=== PATIENT | female | born 1960 | race Caucasian/White ===

== ENCOUNTER 2018-02-20 11:07 | Inpatient (IN) | payer BC, OTHER ==
[~2018-02-20 11:07] MED LIST: CEFAZOLIN 2 GM/50 ML (PMX) 50 ML IVPB; LACTATED RINGER'S 1,000 ML IV*; metroNIDAZOLE 500 MG/NS (PMX) 100 ML IVPB
[2018-02-20] MEDS ORDERED: metroNIDAZOLE 500 MG/NS (PMX) 100 ML IVPB (13:10)
[2018-02-20] MEDS ORDERED: PROPOFOL 20 ML (13:10)
[2018-02-20] MEDS ORDERED: CEFAZOLIN 1 GM INJ (13:10)
[2018-02-20] MEDS ORDERED: LIDOCAINE 2% (SDV) 5 ML INJ (13:10)
[2018-02-20] MEDS ORDERED: MIDAZOLAM 1 MG/ML 2 ML INJ (13:11)
[2018-02-20] MEDS ORDERED: FENTAnyl 50 MCG/ML VIAL (13:11)
[2018-02-20] MEDS ORDERED: ONDANSETRON 4 MG INJ (13:32)
[2018-02-20] MEDS ORDERED: DEXAMETHASONE 4 MG/ML 1 ML INJ (13:32)
[2018-02-20] MEDS ORDERED: FAMOTIDINE 20 MG INJ (13:33)
[2018-02-20] MEDS ORDERED: METOCLOPRAMIDE 10 MG INJ (14:00)
[2018-02-20] MEDS ORDERED: EPHEDrine SULFATE 50 MG/5 ML SYG (14:01)
[2018-02-20] MEDS: BUPIVACAINE 0.25%/EPI (MDV) 50 ML VIAL INJ (14:02)
[2018-02-20] MEDS: LIDOCAINE 1% (MDV) 20 ML INJ (14:02)
[2018-02-20] MEDS ORDERED: HYDROmorphONE 2 MG/ML SYG (14:04)
[2018-02-20] MEDS ORDERED: MEPERIDINE 25 MG INJ IV (15:00)
[2018-02-20] MEDS ORDERED: hydrALAzine 20 MG INJ IV (15:00)
[2018-02-20] MEDS ORDERED: FENTAnyl 50 MCG/ML VIAL IV (15:00)
[2018-02-20] MEDS ORDERED: ALBUTEROL 0.083% (NEB) 2.5 MG/3 ML AMP HHN (15:00)
[2018-02-20] MEDS ORDERED: LABETALOL HCL 20MG INJ IV (15:00)
[2018-02-20] MEDS ORDERED: HYDROmorphONE 1 MG/5 ML IV SYRINGE IV (15:00)
[2018-02-20] MEDS ORDERED: ONDANSETRON 4 MG INJ IV ×2 (15:00→16:00)
[2018-02-20] MEDS ORDERED: CEPASTAT LOZENGE MT (16:00)
[2018-02-20] MEDS ORDERED: NITROGLYCERIN (SL) 0.4 MG TAB SL (16:00)
[2018-02-20] MEDS ORDERED: HYDROmorphONE 0.5 MG/0.5 ML SYG IV (16:00)
[2018-02-20] MEDS: ACETAMINOPHEN 1000MG/100ML IV 100 ML IVPB (16:16)
[2018-02-20 16:30] LABS: ADD MAN DIFF? NO
[2018-02-20] MEDS ORDERED: GLUCOSE GEL 15 GRAM TUBE BUCCAL (16:30)
[2018-02-20] MEDS ORDERED: DEXTROSE 50% 50 ML SYRINGE IV ×2 (16:30)
[2018-02-20] MEDS ORDERED: GLUCOSE GEL 15 GRAM TUBE PO ×2 (16:30)
[2018-02-20] MEDS ORDERED: GLUCAGON 1 MG INJ IM (16:30)
[2018-02-20 16:31] LABS: BASOPHILS % 0.4 % (0.0-2.0); EOSINOPHILS % 0.3 % (0.0-7.0); HEMATOCRIT 37.6 % (37.0-47.0); HEMOGLOBIN 12.3 g/dl (12.0-16.0); LYMPHOCYTES # 1.1 10^3/ul (0.8-2.9); LYMPHOCYTES % 15.2 % (15.0-51.0); MEAN CORPUSCULAR HEMOGLOBIN 31.4 pg (29.0-33.0); MEAN CORPUSCULAR HGB CONC 32.7 g/dl (32.0-37.0); MEAN CORPUSCULAR VOLUME 95.9 fl (82.0-101.0); MEAN PLATELET VOLUME 9.6 fl (7.4-10.4); MONOCYTE # 0.2 10^3/ul (0.3-0.9); MONOCYTES % 2.1 % (0.0-11.0); NEUTROPHIL # 5.7 10^3/ul (1.6-7.5); NEUTROPHILS % 81.7 % (39.0-77.0); PLATELET COUNT 284 10^3/UL (140-415); RED BLOOD COUNT 3.92 10^6/ul (4.20-5.40)
[2018-02-20 17:06] LABS: ANION GAP 11 (8-16); BLOOD UREA NITROGEN 14 mg/dl (7-20); CALCIUM 8.7 mg/dl (8.4-10.2); CARBON DIOXIDE 26 mmol/L (21-31); CHLORIDE 105 mmol/L (97-110); CREATININE 0.54 mg/dl (0.44-1.00); GLUCOSE 156 mg/dl (70-220); POTASSIUM 4.3 mmol/L (3.5-5.1); SODIUM 138 mmol/L (135-144)
[2018-02-20] MEDS: LACTATED RINGER'S 1,000 ML IV (17:34)
[2018-02-20] MEDS: INSULIN ASPART [NOVOLOG] 3 ML PEN SC ×2 (17:55→20:44)
[2018-02-20] MEDS: CEFAZOLIN 2 GM/50 ML (PMX) 50 ML IVPB (20:43)
[2018-02-20] MEDS: FAMOTIDINE 20 MG TAB PO (20:44)
[2018-02-20] MEDS: KETOROLAC 30 MG INJ IV (20:44)
[2018-02-20] MEDS: metroNIDAZOLE 500 MG/NS (PMX) 100 ML IVPB (22:10)
[2018-02-21] MEDS: CEFAZOLIN 2 GM/50 ML (PMX) 50 ML IVPB ×2 (04:24→13:04)
[2018-02-21 05:16] LABS: ADD MAN DIFF? NO
[2018-02-21 05:22] LABS: WHITE BLOOD COUNT 6.9 10^3/ul (4.8-10.8)
[2018-02-21 05:22] LABS: BASOPHILS % 0.4 % (0.0-2.0); EOSINOPHILS % 0.1 % (0.0-7.0); HEMATOCRIT 35.9 % (37.0-47.0); HEMOGLOBIN 11.9 g/dl (12.0-16.0); LYMPHOCYTES # 1.1 10^3/ul (0.8-2.9); LYMPHOCYTES % 16.5 % (15.0-51.0); MEAN CORPUSCULAR HEMOGLOBIN 31.2 pg (29.0-33.0); MEAN CORPUSCULAR HGB CONC 33.1 g/dl (32.0-37.0); MEAN CORPUSCULAR VOLUME 94.2 fl (82.0-101.0); MEAN PLATELET VOLUME 9.8 fl (7.4-10.4); MONOCYTE # 0.4 10^3/ul (0.3-0.9); MONOCYTES % 6.2 % (0.0-11.0); NEUTROPHIL # 5.3 10^3/ul (1.6-7.5); NEUTROPHILS % 76.5 % (39.0-77.0); PLATELET COUNT 298 10^3/UL (140-415); RED BLOOD COUNT 3.81 10^6/ul (4.20-5.40); RED CELL DISTRIBUTION WIDTH 13.9 % (11.5-14.5)
[2018-02-21] MEDS: LACTATED RINGER'S 1,000 ML IV (05:24)
[2018-02-21] MEDS: metroNIDAZOLE 500 MG/NS (PMX) 100 ML IVPB ×2 (05:25→14:06)
[2018-02-21 05:44] LABS: ANION GAP 12 (8-16); BLOOD UREA NITROGEN 10 mg/dl (7-20); CALCIUM 9.3 mg/dl (8.4-10.2); CARBON DIOXIDE 28 mmol/L (21-31); CHLORIDE 103 mmol/L (97-110); CREATININE 0.58 mg/dl (0.44-1.00); GLUCOSE 121 mg/dl (70-220); POTASSIUM 4.1 mmol/L (3.5-5.1); SODIUM 139 mmol/L (135-144)
[2018-02-21 07:04] LABS: ADD UMIC YES; UR ASCORBIC ACID NEGATIVE (NEGATIVE); UR BACTERIA FEW /HPF (NONE SEEN); UR BILIRUBIN (Dip) NEGATIVE (NEGATIVE); UR BLOOD (Dip) 2+ mg/dL (NEGATIVE); UR CLARITY CLEAR (CLEAR); UR COLOR STRAW (YELLOW); UR GLUCOSE (Dip) NEGATIVE (NEGATIVE); UR KETONES (Dip) NEGATIVE (NEGATIVE); UR LEUKOCYTE ESTERASE (Dip) TRACE Leu/ul (NEGATIVE); UR NITRITE (Dip) NEGATIVE (NEGATIVE); UR RBC 23 /HPF (0-5); UR SPECIFIC GRAVITY (Dip) 1.011 (1.003-1.030); UR TOTAL PROTEIN (Dip) NEGATIVE (NEGATIVE); UR UROBILINOGEN (Dip) NEGATIVE (NEGATIVE); UR WBC 4 /HPF (0-5)
[2018-02-21] MEDS: INSULIN ASPART [NOVOLOG] 3 ML PEN SC ×2 (07:50→11:40)
[2018-02-21] MEDS: FAMOTIDINE 20 MG TAB PO (08:39)
[2018-02-21] MEDS: METOPROLOL (XL) 50 MG TAB PO (08:40)
[2018-02-21] MEDS: KETOROLAC 30 MG INJ IV ×2 (08:40→15:07)
[2018-02-21] MEDS: AMLODIPINE 2.5 MG TAB PO (08:41)
== END 2018-02-21 16:24 | disposition home or self-care (01) | DRG 395 ==
LOC: REC 11:07 → MS1 16:56
PROVIDERS: Surgery
PROC: 0DBP8ZZ Excision of Rectum, Via Natural or Artificial Opening Endoscopic (ICD-10-PCS; principal; 2018-02-20 13:00)
DX: K62.3 Rectal prolapse (principal); Z85.038 Personal history of other malignant neoplasm of large intestine
CPT/HCPCS: 80048; 81001; 82962; 85025; 86850; 86900; 86901; 87086; 88305